=== PATIENT | male | born 2000 | race Caucasian/White ===

== ENCOUNTER 2022-02-24 11:43 | Emergency (ER) | payer BC, SELFPAY ==
--- NOTE | ~2022-02-24 | CT_ITS ---
EXAMINATION: CT soft tissue neck wo con DATE: 02/24/2022 12:55 INDICATION: Left lower jaw pain and swelling TECHNIQUE: Computed tomography (CT) of the neck was performed without intravenous contrast. The dose- length product (DLP) was 516.60 mGy-cm. Automated exposure control and iterative reconstruction techn ique were employed. COMPARISON: None FINDINGS: There is asymmetric enlargement of the left parotid gland relative to the right. There is s urrounding inflammatory change of the soft subcutaneous tissues extending caudally adjacent to the le ft mandible there is mild left cervical lymphadenopathy. Subcentimeter nodules are noted in the thyro id. The submandibular glands are symmetric. There are no masses identified. The airway is unremarkabl e. There are no osseous abnormalities. The orbits are unremarkable. The superior mediastinum is unrem arkable. There is mild mucosal thickening of the paranasal sinuses. A polyp or mucous retention cyst is noted in the right maxillary sinus. IMPRESSION: 1. Findings consistent with left parotiditis with secondary inflammation of the left facial subcutane ous tissues. No definite abscess identified although sensitivity is limited by the absence of intrave nous contrast. 2. Mild cervical lymphadenopathy, likely reactive. 3. Sinus disease. Reviewed, dictated and finalized at location A. IMPRESSION: 1. Findings consistent with left parotiditis with secondary inflammation of the left facial subcutaneous tissues. No definite abscess identified although sens itivity is limited by the absence of intravenous contrast. 2. Mild cervical lymphadenopathy, likely reactive. 3. Sinus disease.
[2022-02-24 11:51] VITALS: BP 149/84; PULSE 80; RESP 17; TEMP 37; O2SAT 99
--- NOTE | 2022-02-24 12:14 | ED.GENADULT ---
HPI - General Adult General Chief complaint: Dental/Oral Stated complaint: Facial swelling Time Seen by Provider: 02/24/22 11:51 Source: patient Mode of arrival: ambulatory Limitations: no limitations History of Present Illness HPI narrative: 21-year-old male presents today with complaints of left facial swelling that started about 3 days ago. Patient does endorse pain with chewing and opening mouth. Patient last saw dentist about a year ago. Patient denies any dental issues. Upon first assessment patient with tenderness noted to the upper molars. Reevaluated patient and he denied pain with palpation to the upper molars but did endorse pain to the cheek. Patient also noted pain behind the ear and to the left jaw. Patient denies any fevers, injuries. Related Data Allergies Allergy/AdvReac Type Severity Reaction Status Date / Time No Known Allergies Allergy Verified 02/24/22 12:00 Review of Systems Review of Systems: CONSTITUTIONAL: Denies fever, chills, or sweats. EYES: Denies visual changes, redness, or discharge. ENT: Left facial swelling with pain to left upper jaw and behind left ear. Denies rhinorrhea, congestion, sore throat, or otalgia. CARDIOVASCULAR: Denies chest pain, palpitations, or edema. RESPIRATORY: Denies cough or dyspnea. GASTROINTESTINAL: Denies abdominal pain, nausea, vomiting, or diarrhea. GENITOURINARY: Denies dysuria or hematuria. SKIN: Denies rash or itching. MUSCULOSKELETAL: Denies back pain, joint pain, or myalgia. NEUROLOGIC: Denies headache, numbness, dizziness, or weakness. PSYCHIATRIC: Denies anxiety or depression. Exam Narrative: GENERAL: Well-appearing, well-nourished, and in no acute distress. HEAD: Normocephalic, atraumatic. EYES: PERRLA and EOMI. ENT: Swelling to left cheek down to jaw. Tenderness to TMJ joint, posterior to the ear. No obvious abscess noted or no dental abscess noted. Tenderness with palpation to left upper oral mucosa. no rhinorrhea or epistaxis. Mucous membranes moist. Oropharynx without tonsillar hypertrophy exudate or other lesions. Bilateral TMs pearly henriquez nonbulging NECK: Supple. No adenopathy or masses. No carotid bruits or JVD CHEST: Clear to auscultation. No respiratory distress. No wheezes rales or rhonchi HEART: Regular rate and rhythm. No murmur heard. Normal peripheral pulses. ABDOMEN: Soft, nontender, nondistended, normal active bowel sounds. EXTREMITIES: Normal range of motion. No edema. SKIN: Warm, dry, no rash. NEURO: No focal deficits. Alert and oriented x3. PSYCH: Normal mood and affect. Course Course Emergency Course: CT results reviewed with patient. Patient noted improvement after medications. Dad at bedside. Patient to be discharged home with antibiotics and follow-up with primary. Vital Signs Vital signs: Vital Signs Temperature 37.0 C 02/24/22 11:51 Pulse Rate 80 02/24/22 11:51 Respiratory Rate 17 02/24/22 11:51 Blood Pressure 149/84 H 02/24/22 11:51 Pulse Oximetry 99 02/24/22 11:51 Oxygen Delivery Room Air 02/24/22 11:51 Temperature 37.0 C 02/24/22 11:51 Pulse Rate 79 02/24/22 14:08 Respiratory Rate 18 02/24/22 14:08 Blood Pressure 128/76 02/24/22 14:08 Pulse Oximetry 100 02/24/22 14:08 Oxygen Delivery Room Air 02/24/22 11:51 Medical Decision Making MDM Narrative Medical decision making narrative: 21-year-old male HPI as noted. Patient here from urgent care for further work-up. Suspected dental caries or dental abscess. But patient without obvious abscess. CT consistent with a left parotitis with soft tissue inflammation. No obvious abscess noted on exam. Patient without trismus or Ludewig's angina. Improvement noted after dexamethasone and oral antibiotics here in the ER. Patient discharged with continued oral antibiotics and plan follow-up with primary. Differential Diagnosis Differential Diagnosis: Dental abscess, dental caries, left jaw pain, Vital Signs Vital Sign
[2022-02-24] MEDS: DEXAMETHASONE 2 MG TABLET 6 MG PO (12:23)
[2022-02-24] MEDS: AMOXICILLIN/CLAVULANATE K 875-125 MG TAB 1 TABLET PO (12:23)
[2022-02-24] MEDS: DEXAMETHASONE 4 MG TABLET PO (12:24)
[2022-02-24 14:08] VITALS: BP 128/76; PULSE 79; RESP 18; O2SAT 100
== END 2022-02-24 14:10 | disposition home or self-care (01) ==
PROVIDERS: Emergency Provider Nurse Practitioner Family
DX: K11.20 Sialoadenitis, unspecified (principal); J32.9 Chronic sinusitis, unspecified
CPT/HCPCS: 70490; 99284; A9270; J8540

== ENCOUNTER 2023-09-21 08:12 | Emergency (ER) | payer BC, SELFPAY ==
[2023-09-21 08:27] VITALS: BP 114/99; PULSE 80; RESP 20; TEMP 36.8; O2SAT 100
--- NOTE | 2023-09-21 08:27 | ED.EYEPROB ---
HPI - Eye Problem General Chief complaint: Eye Problems Stated complaint: EYE REDNESS/SWELLING Time Seen by Provider: 09/21/23 08:27 Source: patient Mode of arrival: ambulatory Limitations: no limitations History of Present Illness HPI Narrative: 23-year-old male presents with complaint of right eye redness, drainage and swelling starting yesterday evening. Woke up this morning in swelling worse. Denies trauma. Does not were contacts. No vision changes. All systems reviewed and negative except as noted above. Related Data Allergies Allergy/AdvReac Type Severity Reaction Status Date / Time No Known Allergies Allergy Verified 09/21/23 08:31 Review of Systems Review of Systems: CONSTITUTIONAL: Denies fever, chills, or sweats. EYES: Denies visual changes reports right eye redness, swelling and discharge. ENT: Denies rhinorrhea, congestion, sore throat, or otalgia. CARDIOVASCULAR: Denies chest pain, palpitations, or edema. RESPIRATORY: Denies cough or dyspnea. GASTROINTESTINAL: Denies abdominal pain, nausea, vomiting, or diarrhea. GENITOURINARY: Denies dysuria or hematuria. SKIN: Denies rash or itching. MUSCULOSKELETAL: Denies back pain, joint pain, or myalgia. NEUROLOGIC: Denies headache, numbness, or weakness. PSYCHIATRIC: Denies anxiety or depression. All other systems reviewed are negative, except as documented in HPI. PMFSH Comments At time of signature, agree with nursing past medical, surgical, social and family history. There is no relevant family history pertinent to the presenting complaint. Exam Narrative: GENERAL: This is a well-nourished, well-developed patient, in no apparent distress. HEAD: normocephalic, atraumatic. EYES: PERRL. Sclera and conjunctiva right eye erythematous with surrounding soft tissue swelling to upper and lower eyelids. Purulence yellow discharge is mild. Vision is grossly intact. EARS: External ears normal NOSE: External nose normal NECK: Neck supple, non-tender without lymphadenopathy, masses or thyromegaly. CARDIOVASCULAR: Regular rate and rhythm without murmurs, gallops, or rubs. RESPIRATORY: Clear to auscultation. Breath sounds equal bilaterally. No wheezes, rales, or rhonchi. SKIN: warm, Dry, intact with no suspicious lesions or rash, good texture and turgor. NEURO: awake, alert, and oriented to person, place and time. There were no obvious focal neurologic abnormalities. EXTREMITIES: No joint tenderness, effusion, or edema noted. Course Course Level of Care: Express Care Visit Vital Signs Vital signs: Reviewed MDM - Eye Problem MDM Narrative Medical decision making narrative: Patient is aware of diagnosis, understands and agrees to treatment plan. Anticipatory guidance given. Patient agrees to follow-up as directed and is aware of reasons to seek care at the emergency department. Portions of this record may have been created with voice recognition software Differential Diagnosis Differential diagnosis: Likely conjunctivitis Discharge Plan Discharge Clinical Impression: Acute bacterial conjunctivitis of right eye Patient Disposition: Home, Self-Care Condition: Stable Instructions: Antibiotic Form, Conjunctivitis (ED) Additional Instructions: Place antibiotic eyedrop as prescribed. Wash hands before and after placing eye drop. Follow-up with your primary care physician if symptoms not improving. Prescriptions: New ofloxacin 0.3 % drops See Rx Instructions .ROUTE .COMPLEX Qty: 10 0RF Rx Instructions: put 1-2 drps into affected eye(s) every 2-4 h x 2 days, then 1-2 drps 4 times/day days 3-7 Follow-up/Referrals: PHYSICIAN,[employer] FINISHER [Primary Care Provider] - Stand Alone Forms: Work/School Release IP Time of Disposition: 08:33
== END 2023-09-21 08:36 | disposition home or self-care (01) ==
PROVIDERS: Emergency Provider Nurse Practitioner Family
DX: H10.31 Unspecified acute conjunctivitis, right eye (principal)
CPT/HCPCS: 99213; G0463